=== PATIENT | female | born 1955 | race African-American/Black ===

== ENCOUNTER 2017-03-14 13:08 | Inpatient (IN) | payer OTHER ==
[2017-03-14 14:24] VITALS: BMI 21.6
--- NOTE | 2017-03-14 14:36 | HP ---
Admission [facility] Chief Complaint: I AM HERE FOR REHAB FROM ALCOHOL AND COCAINE Allergies/Adverse Reactions: Allergies Allergy/AdvReac Type Severity Reaction Status Date / Time No Known Allergies Allergy Verified 03/14/17 14:24 History of Present Illness: THIS 61 YEARS OLD FEMALE WITH ALCOHOL AND COCAINE DEPENDENCE ,SEEKING REHAB, LAST TREATMENT IN [facility] 03/01/17 TO 03/14/17 HTN,INSOMNIA WEIGHT LOSS NICOTINE [id number] LONGEST PERIOD OF SOBRIETY 5 YEARS Exam Limitations: No Limitations - Ebola screening Have you traveled outside of the country in the last 21 days: No Have you had contact with anyone from an Ebola affected area: No Have you been sick,other than usual withdrawal symptoms: No Do you have a fever: No - Review of Systems Constitutional: No Symptoms Reported EENT: reports: No Symptoms Reported Respiratory: reports: No Symptoms reported Cardiac: reports: No Symptoms Reported GI: reports: No Symptoms Reported : reports: No Symptoms Reported Musculoskeletal: reports: No Symptoms Reported Integumentary: reports: No Symptoms Reported Neuro: reports: No Symptoms reported Endocrine: reports: No Symptoms Reported Hematology: reports: No Symptoms Reported Psychiatric: reports: No Sypmtoms Reported, Judgement Intact, Mood/Affect Appropiate, Depressed Patient History - Patient Medical History Hx Chronic Obstructive Pulmonary Disease (COPD): No Hx Cancer: No Hx Cardiac Disorders: No Hx Congestive Heart Failure: No Hx Hypertension: Yes (ON MED) Hx Hypercholesterolemia: No Hx Pacemaker: No HX Cerebrovascular Accident: No Hx Seizures: No Hx Dementia: No Hx Diabetes: No Hx Gastrointestinal Disorders: No Hx Liver Disease: No Hx Genitourinary Disorders: No Hx Sexually Transmitted Disorders: No Hx Renal Disease (ESRD): No Hx Thyroid Disease: No Hx Human Immunodeficiency Virus (HIV): No (LAST NEGATIVE 03/11) Hx Hepatitis C: No Hx Depression: Yes Hx Suicide Attempt: Yes (OVERDOSE 02/08) - Patient Surgical History Past Surgical History: Yes Hx Neurologic Surgery: Yes (2003 FOR BLEEEDING ANEURYSM AT [facility]) - PPD History Previous Implant?: Yes Implanted On Prior [facility] Admission?: No PPD to be Administered?: Yes - Smoking Cessation Smoking history: Current every day smoker Have you smoked in the past 12 months: Yes Aproximately how many cigarettes per day: 20 Hx Chewing Tobacco Use: No Initiated information on smoking cessation: Yes 'Breaking Loose' booklet given: 03/14/17 - Substance & Tx. History Hx Alcohol Use: Yes Hx Substance Use: Yes Substance Use Type: Alcohol, Cocaine - Substances Abused Cocaine Route: Smoking Frequency: Daily Amount used: $400 Age of first use: 25 Date of Last Use: 03/01/17 Alcohol Route: Oral Frequency: Daily Amount used: 1-2 6pks beer Age of first use: 14 Date of Last Use: 03/01/17 Family Disease History - Family Disease History Family Disease History: CA: Father (ALCOHOL,,BRAIN TUMOR), Mother ( BLADDER,), Other: Father Admission Physical Exam [facility] - Vital Signs Vital Signs: Vital Signs - 24 hr 03/14/17 14:22 Temperature 96.0 F L Pulse Rate 74 Respiratory 20 Rate Blood Pressure 139/72 - Physical General Appearance: Yes: Within Normal Limits, No Apparent Distress HEENTM: Yes: Normal ENT Inspection, AMANDA, Pharynx Normal Respiratory: Yes: Lungs Clear, Normal Breath Sounds, No Respiratory Distress Neck: Yes: No masses,lesions,Nodules, Supple, Trachea in good position Breast: Yes: Breast Exam Deferred Cardiology: Yes: Within Normal Limits, Regular Rhythm, Regular Rate, S1, S2 Abdominal: Yes: Within Normal Limits, Normal Bowel Sounds, Non Tender, Flat, Soft Genitourinary: Yes: Within Normal Limits Back: Yes: Within Normal Limits Musculoskeletal: Yes: Within Normal Limits, Back pain Extremities: Yes: Within Normal Limits Neurological: Yes: va underwriter II-XII NML intact, Fully Oriented, Alert, Motor Strength 5/5 Lymphatic: Yes: Within Normal Limits - Diagnostic (1) Alcohol dependence Current Visit: Yes Status: Acute (2) Cocaine dependence Current Visit: Yes Status: Acute (3) Weight loss Current Visit: Yes Status: Acute (4) Hypertension Current Visit: Yes Status: Acute (5) Anxiety and depression Current Visit: Yes Status: Acute (6) History of surgery for cerebral aneurysm Current Visit: Yes Status: Acute (7) Insomnia Current Visit: Yes Status: Acute Cleared for Admission [facility] - Detox or Rehab Claeared for Rehab Admission: Yes [facility] Breath Alcohol Content Breath Alcohol Content: 0 Urine Pregancy Test - Result Urine Test Results: Negative- NO Line Present Urine Drug Screen - Results Drug Screen Negative: No Urine Drug Screen Results: [facility]-Cocaine Inpatient Rehab Admission - Initial Determination Are CD services needed?: Yes Free of communicable disease: Yes Not in need of hospitalization: Yes - Rehab Admission Criteria Poor recovery environment: Yes Comorbidities: Yes Patient is meeting Inpatient Rehab admission criteria:: Yes
[2017-03-14] MEDS ORDERED: LOPERAMIDE HCL 2 MG CAPSULE PO PRN (15:04)
[2017-03-14] MEDS ORDERED: MAG HYDROX/AL HYDROX/SIMETH 30 ML UNIT-DOSE CUP PO PRN (15:04)
[2017-03-14] MEDS ORDERED: P-EPHED 60MG/TRIPROLIDI 2.5MG TABLET PO PRN (15:04)
[2017-03-14] MEDS ORDERED: diphenhydrAMINE HCL 50 MG CAPSULE PO PRN (15:04)
[2017-03-14] MEDS ORDERED: hydrOXYzine PAMOATE 50 MG CAPSULE (FP) PO PRN (15:04)
[2017-03-14] MEDS ORDERED: IBUPROFEN 400 MG TABLET (FP) PO PRN (15:04)
[2017-03-14] MEDS ORDERED: ACETAMINOPHEN 325 MG TABLET (FP) PO PRN (15:04)
[2017-03-14] MEDS ORDERED: MENTHOL/PHENOL 1 EACH UD MM PRN (15:04)
[2017-03-14] MEDS ORDERED: NICOTINE POLACRILEX 2 MG GUM BC PRN (15:04)
[2017-03-14] MEDS ORDERED: guaiFENesin/D-METHORPHAN HB 10 ML UNIT-DOSE CUPS PO PRN (15:04)
[2017-03-14 17:15] LABS: MCH 27.2 pg (25.7-33.7); MCHC 33.2 g/dl (32.0-36.0); MEAN CELL VOLUME 81.9 fl (80-96); MEAN PLT VOLUME 10.6 fl (7.5-11.1); PLATELET COUNT 176 K/MM3 (134-434); RDW 13.5 % (11.6-15.6); WHITE BLOOD COUNT 6.4 K/mm3 (4.0-10.0)
[2017-03-14 17:20] LABS: ALBUMIN 3.4 g/dl (3.4-5.0); CALCIUM 8.7 mg/dL (8.5-10.1); GLUCOSE,RANDOM 93 mg/dL (74-106); SGOT/AST 28 U/L (15-37)
[2017-03-14 17:22] LABS: ALK PHOS 112 U/L (45-117); ANION GAP 5 (8-16); BILIRUBIN,TOTAL 0.3 mg/dL (0.2-1.0); CO2 30 mmol/L (21-32); CREATININE 0.8 mg/dL (0.55-1.02); SGPT/ALT 39 U/L (12-78); TOT PROT 6.8 g/dl (6.4-8.2)
[2017-03-14] MEDS ORDERED: TUBERCULIN PPD 5 TU/0.1ML VIAL ID ONE (18:10)
[2017-03-14 18:34] LABS: PLATELET ESTIMATE ADEQUATE (NORMAL)
[2017-03-14 21:23] LABS: URINE APPEARANCE CLOUDY; URINE BILIRUBIN NEGATIVE (NEGATIVE); URINE BLOOD NEGATIVE (NEGATIVE); URINE COLOR YELLOW; URINE GLUCOSE (UA) NEGATIVE (NEGATIVE); URINE KETONE NEGATIVE (NEGATIVE); URINE NITRITE NEGATIVE (NEGATIVE); URINE PROTEIN NEGATIVE (NEGATIVE); URINE UROBILINOGEN NEGATIVE mg/dL (0.2-1.0)
[2017-03-14] MEDS: THIAMINE HCL 100 MG TABLET (FP) PO SCH (21:35)
[2017-03-14] MEDS: PATIENT'S OWN MEDICATION (NON-FORMULARY) (Simvastatin [Simvastatin] 10 MG) PO SCH (21:36)
[2017-03-14] MEDS: NICOTINE 21 MG/24 HOURS TOPICAL PATCH TD SCH (21:36)
[2017-03-14 21:38] LABS: URINE LEUK ESTERASE 1+ (NEGATIVE)
[2017-03-14 21:43] LABS: URINE MUCUS RARE; URINE RBC 4 /hpf (0-3); URINE WBC 2 /hpf (3-5)
[2017-03-14] MEDS: traZODone HCL 100 MG TABLET (FP) PO SCH (23:27)
[2017-03-15] MEDS ORDERED: PT OWN MED DRAWER 7, Y5N ONE ×3 (09:19→21:42)
[2017-03-15] MEDS: PRENATAL VITAMINS W/ FOLIC ACID TABLET (FP) PO SCH (10:08)
[2017-03-15] MEDS: ASPIRIN COATED 81 MG TABLET.EC PO SCH (10:09)
[2017-03-15] MEDS: amLODIPine BESYLATE 5 MG TABLET (FP) PO SCH (10:09)
[2017-03-15] MEDS: ENALAPRIL MALEATE 2.5 MG TABLET (FP) PO SCH (10:09)
[2017-03-15] MEDS: NICOTINE 21 MG/24 HOURS TOPICAL PATCH TD SCH (10:11)
[2017-03-15 11:29] LABS: HIV 1 & 2 AB NEGATIVE; HIV 1 AGp24 NEGATIVE
[2017-03-15] MEDS ORDERED: PNEUMOC 13-VAL CONJ-DIP CRM/PF 0.5 ML DISP.SYRIN IM ONE (12:00)
[2017-03-15] MEDS ORDERED: FLU VACCINE QUAD 60 MCG/0.5 ML (MDV 17-18) IM ONE (12:00)
[2017-03-15] MEDS ORDERED: PNEUMOCOCCAL 23 VACCINE 0.5 ML VIAL IM ONE (12:00)
--- NOTE | 2017-03-15 16:01 | EKG ---
Test Reason : Blood Pressure : / mmHG Vent. Rate : 069 BPM Atrial Rate : 069 BPM P-R Int : 136 ms QRS Dur : 088 ms QT Int : 432 ms P-R-T Axes : 049 006 -29 degrees QTc Int : 462 ms NORMAL SINUS RHYTHM POSSIBLE ANTERIOR INFARCT , AGE UNDETERMINED ABNORMAL ECG NO PREVIOUS ECGS AVAILABLE Confirmed by JONNATHAN RODRIGUEZ MD ([id number]) on 03/15/2017 4:00:36 PM Referred By: Stephenie Mahoney Confirmed By:JONNATHAN RODRIGUEZ MD
[2017-03-15] MEDS: THIAMINE HCL 100 MG TABLET (FP) PO SCH (21:39)
[2017-03-15] MEDS: traZODone HCL 100 MG TABLET (FP) PO SCH (21:39)
[2017-03-15] MEDS: VALPROIC ACID 250 MG/5 ML PO SCH (21:40)
[2017-03-15] MEDS: PATIENT'S OWN MEDICATION (NON-FORMULARY) (Simvastatin [Simvastatin] 10 MG) PO SCH (21:42)
[2017-03-16] MEDS ORDERED: PT OWN MED DRAWER 7, Y5N ONE (08:43)
[2017-03-16] MEDS: PRENATAL VITAMINS W/ FOLIC ACID TABLET (FP) PO SCH (10:09)
[2017-03-16] MEDS: ASPIRIN COATED 81 MG TABLET.EC PO SCH (10:09)
[2017-03-16] MEDS: ENALAPRIL MALEATE 2.5 MG TABLET (FP) PO SCH (10:10)
[2017-03-16] MEDS: NICOTINE 21 MG/24 HOURS TOPICAL PATCH TD SCH (10:10)
[2017-03-16] MEDS: amLODIPine BESYLATE 5 MG TABLET (FP) PO SCH (10:10)
--- NOTE | 2017-03-16 13:15 | PN ---
Psychiatric Progress Note Vital Signs: Vital Signs Period Temp Pulse Resp BP Sys/Shannon Pulse Ox Last 24 Hr 98.9 F-99.6 F 75-77 18-18 138-145/63-83 Date of Session: 03/16/17 Chief Complaint:: "Sleep is still big problem,Trazodone is not helping at all". HPI: Patient addressed Alcohol and Cocaine dependence comorbid with Substance induced mood disorder. ROS: Significant for HTN,H/O Brain aneurism. Current Medications: Active Medications Generic Name Dose Route Start Last Admin Trade Name Freq PRN Reason Stop Dose Admin Acetaminophen 650 mg 03/14/17 15:04 Tylenol - PO Q4H PRN PAIN Al Hydroxide/Mg Hydroxide 30 ml 03/14/17 15:04 03/14/17 17:29 Mylanta Oral Suspension - PO 30 ml Q6H PRN Administration DYSPEPSIA Amlodipine Besylate 5 mg 03/15/17 10:00 03/16/17 10:10 Norvasc - PO 5 mg DAILY DOTTY Administration Aspirin 81 mg 03/15/17 10:00 03/16/17 10:09 Ecotrin - PO 81 mg DAILY DOTTY Administration Diphenhydramine HCl 50 mg 03/14/17 15:04 Benadryl - PO HSMR1 PRN INSOMNIA Enalapril Maleate 2.5 mg 03/15/17 10:00 03/16/17 10:10 Vasotec - PO 2.5 mg DAILY DOTTY Administration Ergocalciferol 50,000 unit 03/21/17 10:00 Drisdol - PO Th@1000 DOTTY Eucalyptus/Menthol/Phenol/Sorbitol 1 each 03/14/17 15:04 Cepastat Lozenge - MM Q4H PRN SORE THROAT Guaifenesin 10 ml 03/14/17 15:04 Robitussin Dm - PO Q6H PRN COUGH Hydroxyzine Pamoate 50 mg 03/14/17 15:04 Vistaril - PO Q4H PRN AGITATION Ibuprofen 400 mg 03/14/17 15:04 Motrin - PO Q6H PRN SEVERE PAIN Loperamide HCl 4 mg 03/14/17 15:04 Imodium - PO Q6H PRN DIARRHEA Magnesium Citrate 300 ml 03/14/17 15:04 Citroma - PO Q48H PRN CONSTIPATION Magnesium Hydroxide 30 ml 03/14/17 15:04 Milk Of Magnesia - PO DAILY PRN CONSTIPATION Nicotine 21 mg 03/14/17 17:15 03/16/17 10:10 Nicoderm Patch - TD Not Given DAILY DOTTY Nicotine Polacrilex 2 mg 03/14/17 15:04 Nicorette Gum - BC Q2H PRN NICOTINE REPLACEMENT RX Non-Formulary Medication 10 mg 03/14/17 22:00 03/15/17 21:42 Simvastatin [Simvastatin] PO 10 mg HS DOTTY Administration Multivit/Folic Acid/Iron 1 tab 03/15/17 10:00 03/16/17 10:09 Vitamins (Sjr) - PO 1 tab DAILY DOTTY Administration Pseudoephedrine/Triprolidine 1 combo 03/14/17 15:04 Actifed - PO TID PRN NASAL CONGESTION Quetiapine Fumarate 200 mg 03/16/17 22:00 Seroquel - PO HS DOTTY Thiamine HCl 100 mg 03/14/17 22:00 03/15/17 21:39 Vitamin B1 - PO 100 mg HS DOTTY Administration Trazodone HCl 200 mg 03/14/17 22:15 03/15/17 21:39 Desyrel - PO 200 mg HS DOTTY Administration Valproate Sodium 500 mg 03/15/17 22:00 03/15/17 21:40 Depakene - PO 500 mg HS DOTTY Administration Current Side Effect: No Lab tests ordered: No Lab tests reviewed: Yes Provider note:: Chart was revuewed,patient was evaluated and treatment plan has been discussed with [facility].according to the patient Trazodone is not really helping to her.She reports that Seroquel used to help her in the past for mood stability and insomnia.D/C Trazodone 200 mg po hs.Start seroquel 200 mg po hs. Psychoeducation,supportive therapy provided. Supportive therapy provided as well as psychoeducation. Total face to face time:: 30 Mental Status Exam - Mental Status Exam Alert and Oriented to: Time, Place, Person Cognitive Function: Grossly Intact Patient Appearance: Well Groomed Mood: Anxious Affect: Mood Congruent, Labile Patient Behavior: Cooperative Speech Pattern: Clear Voice Loudness: Normal Thought Process: Goal Oriented Thought Disorder: Not Present Hallucinations: Denies Suicidal Ideation: Denies Homicidal Ideation: Denies Insight/Judgement: Fair Sleep: Difficulty falling asleep Appetite: Fair Muscle strength/Tone: Normal Gait/Station: Normal Psychiatric Treatment Plan - Problem List (1) Alcohol dependence Current Visit: Yes (2) Cocaine dependence Current Visit: Yes (3) History of surgery for cerebral aneurysm Current Visit: Yes (4) Hypertension Current Visit: Yes (5) Substance induced mood disorder Current Visit: Yes
--- NOTE | 2017-03-16 13:22 | HP ---
Psychiatrist Admission - Data Date of interview: 03/16/17 Admission source: [facility] Identifying data: This is the first admission to [address] [place] [address] for this 61 years old AA single female,resides alone,unemployed. Medical History: HTN,Hyperlipidemia,H/O surgery for cerebral aneurism. Psychiatric History: Long history of mental illness.Patient was dx with Major depressive disorder,then with Schizoaffective disorder and Bordeline Personality Disorder.Reports a few psychiatric hospitalizations,most recent was a few weeks ago to [facility].She also reports a few siuicidal attempts,most recent was about 3 weeks ago(DOD).Current psychotropic medications:Seroquel 200 mg po hs (obtaining from her PCP). Physical/Sexual Abuse/Trauma History: Patient is not willing to discuss this at present. Vital Signs: Vital Signs - 24 hr 03/16/17 03/16/17 03/16/17 00:30 03:30 07:28 Temperature 99.6 F Pulse Rate 77 Respiratory 18 18 18 Rate Blood Pressure 145/83 03/16/17 10:00 Temperature 98.9 F Pulse Rate 75 Respiratory 18 Rate Blood Pressure 138/63 Allergies/Adverse Reactions: Allergies Allergy/AdvReac Type Severity Reaction Status Date / Time No Known Allergies Allergy Verified 03/14/17 14:24 Date of last physical exam: 03/14/17 Concur with the findings of this exam: Yes - Substance Abuse/Tx History Hx Alcohol Use: Yes (reports drinking since 14 yo,1-2 of 6 pkc of beer daily) Hx Substance Use: Yes (crack/cocaine since ,spending $200-400 while binging) Substance Use Type: Alcohol, Cocaine Hx Substance Use Treatment: Yes (longest abstinence almost 5 years) Mental Status Exam - Mental Status Exam Alert and Oriented to: Time, Place, Person Cognitive Function: Grossly Intact Patient Appearance: Well Groomed Mood: Anxious Affect: Mood Congruent, Labile Patient Behavior: Cooperative Speech Pattern: Clear Voice Loudness: Normal Thought Process: Goal Oriented Thought Disorder: Not Present Hallucinations: Denies Suicidal Ideation: Denies Homicidal Ideation: Denies Insight/Judgement: Fair Sleep: Difficulty falling asleep Appetite: Good Muscle strength/Tone: Normal Gait/Station: Normal Psychiatric Findings - Problem List ([place] 1, 2,3) (1) Alcohol dependence Current Visit: Yes Status: Chronic (2) Cocaine dependence Current Visit: Yes Status: Chronic (3) History of surgery for cerebral aneurysm Current Visit: Yes Status: Resolved (4) Hypertension Current Visit: Yes Status: Chronic (5) Schizoaffective disorder Current Visit: Yes Status: Chronic - Initial Treatment Plan Initial Treatment Plan: Seroquel 200 mg po hs.Will monitor progress.
[2017-03-16] MEDS ORDERED: DOCUSATE SODIUM 100 MG CAPSULE (FP) PO ONE (14:50)
[2017-03-16] MEDS: MAGNESIUM HYDROX 2400MG/30ML ORAL SUSPENSION 30 ML CUP PO PRN (17:30)
[2017-03-16] MEDS: QUEtiapine FUMARATE 200 MG TABLET PO SCH (21:40)
[2017-03-16] MEDS: traZODone HCL 100 MG TABLET (FP) PO SCH (21:40)
[2017-03-16] MEDS: PATIENT'S OWN MEDICATION (NON-FORMULARY) (Simvastatin [Simvastatin] 10 MG) PO SCH (21:40)
[2017-03-16] MEDS: VALPROIC ACID 250 MG/5 ML PO SCH (21:40)
[2017-03-16] MEDS: THIAMINE HCL 100 MG TABLET (FP) PO SCH (21:40)
[2017-03-16] MEDS: DOCUSATE SODIUM 100 MG CAPSULE (FP) PO SCH (22:02)
[2017-03-17] MEDS: NICOTINE 21 MG/24 HOURS TOPICAL PATCH TD SCH (09:52)
[2017-03-17] MEDS: ASPIRIN COATED 81 MG TABLET.EC PO SCH (09:54)
[2017-03-17] MEDS: MAGNESIUM HYDROX 2400MG/30ML ORAL SUSPENSION 30 ML CUP PO PRN (09:54)
[2017-03-17] MEDS: ENALAPRIL MALEATE 2.5 MG TABLET (FP) PO SCH (09:54)
[2017-03-17] MEDS: amLODIPine BESYLATE 5 MG TABLET (FP) PO SCH (09:54)
[2017-03-17] MEDS: PRENATAL VITAMINS W/ FOLIC ACID TABLET (FP) PO SCH (09:55)
[2017-03-17] MEDS: MAGNESIUM CITRATE 300 ML BOTTLE PO PRN (14:07)
[2017-03-17] MEDS: traZODone HCL 100 MG TABLET (FP) PO SCH (21:37)
[2017-03-17] MEDS: VALPROIC ACID 250 MG/5 ML PO SCH (21:37)
[2017-03-17] MEDS: PATIENT'S OWN MEDICATION (NON-FORMULARY) (Simvastatin [Simvastatin] 10 MG) PO SCH (21:39)
[2017-03-17] MEDS: DOCUSATE SODIUM 100 MG CAPSULE (FP) PO SCH (21:40)
[2017-03-17] MEDS: THIAMINE HCL 100 MG TABLET (FP) PO SCH (21:40)
[2017-03-17] MEDS: QUEtiapine FUMARATE 200 MG TABLET PO SCH (21:40)
[2017-03-18] MEDS: ASPIRIN COATED 81 MG TABLET.EC PO SCH (09:06)
[2017-03-18] MEDS: PRENATAL VITAMINS W/ FOLIC ACID TABLET (FP) PO SCH (09:07)
[2017-03-18] MEDS: NICOTINE 21 MG/24 HOURS TOPICAL PATCH TD SCH (09:07)
[2017-03-18] MEDS: amLODIPine BESYLATE 5 MG TABLET (FP) PO SCH (09:07)
[2017-03-18] MEDS: ENALAPRIL MALEATE 2.5 MG TABLET (FP) PO SCH (09:07)
[2017-03-18] MEDS: THIAMINE HCL 100 MG TABLET (FP) PO SCH (21:58)
[2017-03-18] MEDS: DOCUSATE SODIUM 100 MG CAPSULE (FP) PO SCH (21:58)
[2017-03-18] MEDS: traZODone HCL 100 MG TABLET (FP) PO SCH (21:58)
[2017-03-18] MEDS: PATIENT'S OWN MEDICATION (NON-FORMULARY) (Simvastatin [Simvastatin] 10 MG) PO SCH (21:58)
[2017-03-18] MEDS: QUEtiapine FUMARATE 200 MG TABLET PO SCH (21:59)
[2017-03-18] MEDS: VALPROIC ACID 250 MG/5 ML PO SCH (21:59)
[2017-03-19] MEDS: ASPIRIN COATED 81 MG TABLET.EC PO SCH (10:05)
[2017-03-19] MEDS: amLODIPine BESYLATE 5 MG TABLET (FP) PO SCH (10:05)
[2017-03-19] MEDS: NICOTINE 21 MG/24 HOURS TOPICAL PATCH TD SCH (10:06)
[2017-03-19] MEDS: PRENATAL VITAMINS W/ FOLIC ACID TABLET (FP) PO SCH (10:06)
[2017-03-19] MEDS: ENALAPRIL MALEATE 2.5 MG TABLET (FP) PO SCH (10:06)
[2017-03-19] MEDS: DOCUSATE SODIUM 100 MG CAPSULE (FP) PO SCH (21:57)
[2017-03-19] MEDS: traZODone HCL 100 MG TABLET (FP) PO SCH (21:57)
[2017-03-19] MEDS: QUEtiapine FUMARATE 200 MG TABLET PO SCH (21:57)
[2017-03-19] MEDS: THIAMINE HCL 100 MG TABLET (FP) PO SCH (21:59)
[2017-03-19] MEDS: PATIENT'S OWN MEDICATION (NON-FORMULARY) (Simvastatin [Simvastatin] 10 MG) PO SCH (22:22)
[2017-03-19] MEDS: VALPROIC ACID 250 MG/5 ML PO SCH (22:22)
[2017-03-20] MEDS ORDERED: PT OWN MED DRAWER 7, Y5N ONE (08:51)
[2017-03-20] MEDS: PRENATAL VITAMINS W/ FOLIC ACID TABLET (FP) PO SCH (10:11)
[2017-03-20] MEDS: ASPIRIN COATED 81 MG TABLET.EC PO SCH (10:11)
[2017-03-20] MEDS: amLODIPine BESYLATE 5 MG TABLET (FP) PO SCH (10:11)
[2017-03-20] MEDS: ENALAPRIL MALEATE 2.5 MG TABLET (FP) PO SCH (10:11)
[2017-03-20] MEDS: NICOTINE 21 MG/24 HOURS TOPICAL PATCH TD SCH (10:12)
[2017-03-20] MEDS: MAGNESIUM HYDROX 2400MG/30ML ORAL SUSPENSION 30 ML CUP PO PRN (14:38)
[2017-03-20] MEDS: DOCUSATE SODIUM 100 MG CAPSULE (FP) PO SCH (21:53)
[2017-03-20] MEDS: traZODone HCL 100 MG TABLET (FP) PO SCH (21:54)
[2017-03-20] MEDS: THIAMINE HCL 100 MG TABLET (FP) PO SCH (21:54)
[2017-03-20] MEDS: QUEtiapine FUMARATE 200 MG TABLET PO SCH (21:55)
[2017-03-20] MEDS: VALPROIC ACID 250 MG/5 ML PO SCH (21:56)
[2017-03-20] MEDS: PATIENT'S OWN MEDICATION (NON-FORMULARY) (Simvastatin [Simvastatin] 10 MG) PO SCH (21:56)
[2017-03-20] MEDS: MAGNESIUM CITRATE 300 ML BOTTLE PO PRN (21:58)
[2017-03-21] MEDS ORDERED: PT OWN MED DRAWER 7, Y5N ONE (09:07)
[2017-03-21] MEDS: PRENATAL VITAMINS W/ FOLIC ACID TABLET (FP) PO SCH (10:26)
[2017-03-21] MEDS: ASPIRIN COATED 81 MG TABLET.EC PO SCH (10:27)
[2017-03-21] MEDS: ENALAPRIL MALEATE 2.5 MG TABLET (FP) PO SCH (10:27)
[2017-03-21] MEDS: amLODIPine BESYLATE 5 MG TABLET (FP) PO SCH (10:27)
[2017-03-21] MEDS: ERGOCALCIFEROL (VITAMIN D2) 50,000 UNIT CAPSULE (FP) PO SCH (10:28)
[2017-03-21] MEDS: NICOTINE 21 MG/24 HOURS TOPICAL PATCH TD SCH (10:28)
[2017-03-21] MEDS: PATIENT'S OWN MEDICATION (NON-FORMULARY) (Simvastatin [Simvastatin] 10 MG) PO SCH (21:48)
[2017-03-21] MEDS: traZODone HCL 100 MG TABLET (FP) PO SCH (21:48)
[2017-03-21] MEDS: DOCUSATE SODIUM 100 MG CAPSULE (FP) PO SCH (21:48)
[2017-03-21] MEDS: THIAMINE HCL 100 MG TABLET (FP) PO SCH (21:48)
[2017-03-21] MEDS: QUEtiapine FUMARATE 200 MG TABLET PO SCH (21:48)
[2017-03-21] MEDS: VALPROIC ACID 250 MG/5 ML PO SCH (21:49)
[2017-03-22] MEDS ORDERED: PT OWN MED DRAWER 7, Y5N ONE (09:23)
[2017-03-22] MEDS: PRENATAL VITAMINS W/ FOLIC ACID TABLET (FP) PO SCH (10:23)
[2017-03-22] MEDS: NICOTINE 21 MG/24 HOURS TOPICAL PATCH TD SCH (10:23)
[2017-03-22] MEDS: ENALAPRIL MALEATE 2.5 MG TABLET (FP) PO SCH (10:24)
[2017-03-22] MEDS: ASPIRIN COATED 81 MG TABLET.EC PO SCH (10:24)
[2017-03-22] MEDS: amLODIPine BESYLATE 5 MG TABLET (FP) PO SCH (10:25)
[2017-03-22] MEDS: ERGOCALCIFEROL (VITAMIN D2) 50,000 UNIT CAPSULE (FP) PO SCH (10:25)
[2017-03-22] MEDS: VALPROIC ACID 250 MG/5 ML PO SCH (21:37)
[2017-03-22] MEDS: PATIENT'S OWN MEDICATION (NON-FORMULARY) (Simvastatin [Simvastatin] 10 MG) PO SCH (21:38)
[2017-03-22] MEDS: THIAMINE HCL 100 MG TABLET (FP) PO SCH (21:38)
[2017-03-22] MEDS: traZODone HCL 100 MG TABLET (FP) PO SCH (21:38)
[2017-03-22] MEDS: DOCUSATE SODIUM 100 MG CAPSULE (FP) PO SCH (21:38)
[2017-03-22] MEDS: QUEtiapine FUMARATE 200 MG TABLET PO SCH (21:39)
[2017-03-23] MEDS ORDERED: PT OWN MED DRAWER 7, Y5N ONE ×2 (08:40→19:34)
[2017-03-23] MEDS: ASPIRIN COATED 81 MG TABLET.EC PO SCH (10:32)
[2017-03-23] MEDS: amLODIPine BESYLATE 5 MG TABLET (FP) PO SCH (10:32)
[2017-03-23] MEDS: NICOTINE 21 MG/24 HOURS TOPICAL PATCH TD SCH (10:32)
[2017-03-23] MEDS: ENALAPRIL MALEATE 2.5 MG TABLET (FP) PO SCH (10:32)
[2017-03-23] MEDS: PRENATAL VITAMINS W/ FOLIC ACID TABLET (FP) PO SCH (10:33)
[2017-03-23] MEDS: VALPROIC ACID 250 MG/5 ML PO SCH (21:22)
[2017-03-23] MEDS: DOCUSATE SODIUM 100 MG CAPSULE (FP) PO SCH (21:22)
[2017-03-23] MEDS: QUEtiapine FUMARATE 200 MG TABLET PO SCH (21:23)
[2017-03-23] MEDS: traZODone HCL 100 MG TABLET (FP) PO SCH (21:23)
[2017-03-23] MEDS: THIAMINE HCL 100 MG TABLET (FP) PO SCH (21:23)
[2017-03-23] MEDS: PATIENT'S OWN MEDICATION (NON-FORMULARY) (Simvastatin [Simvastatin] 10 MG) PO SCH (21:24)
[2017-03-24] MEDS ORDERED: PT OWN MED DRAWER 7, Y5N ONE (08:49)
[2017-03-24] MEDS: amLODIPine BESYLATE 5 MG TABLET (FP) PO SCH (10:09)
[2017-03-24] MEDS: ASPIRIN COATED 81 MG TABLET.EC PO SCH (10:09)
[2017-03-24] MEDS: NICOTINE 21 MG/24 HOURS TOPICAL PATCH TD SCH (10:09)
[2017-03-24] MEDS: ENALAPRIL MALEATE 2.5 MG TABLET (FP) PO SCH (10:09)
[2017-03-24] MEDS: PRENATAL VITAMINS W/ FOLIC ACID TABLET (FP) PO SCH (10:09)
[2017-03-24] MEDS: PATIENT'S OWN MEDICATION (NON-FORMULARY) (Simvastatin [Simvastatin] 10 MG) PO SCH (21:26)
[2017-03-24] MEDS: QUEtiapine FUMARATE 200 MG TABLET PO SCH (21:27)
[2017-03-24] MEDS: traZODone HCL 100 MG TABLET (FP) PO SCH (21:27)
[2017-03-24] MEDS: DOCUSATE SODIUM 100 MG CAPSULE (FP) PO SCH (21:27)
[2017-03-24] MEDS: THIAMINE HCL 100 MG TABLET (FP) PO SCH (21:27)
[2017-03-24] MEDS: VALPROIC ACID 250 MG/5 ML PO SCH (21:27)
[2017-03-25] MEDS ORDERED: PT OWN MED DRAWER 7, Y5N ONE ×3 (08:43→19:43)
[2017-03-25] MEDS: ASPIRIN COATED 81 MG TABLET.EC PO SCH (09:34)
[2017-03-25] MEDS: NICOTINE 21 MG/24 HOURS TOPICAL PATCH TD SCH (09:35)
[2017-03-25] MEDS: ENALAPRIL MALEATE 2.5 MG TABLET (FP) PO SCH (09:35)
[2017-03-25] MEDS: amLODIPine BESYLATE 5 MG TABLET (FP) PO SCH (09:35)
[2017-03-25] MEDS: PRENATAL VITAMINS W/ FOLIC ACID TABLET (FP) PO SCH (09:35)
[2017-03-25] MEDS: traZODone HCL 100 MG TABLET (FP) PO SCH (21:27)
[2017-03-25] MEDS: VALPROIC ACID 250 MG/5 ML PO SCH (21:27)
[2017-03-25] MEDS: DOCUSATE SODIUM 100 MG CAPSULE (FP) PO SCH (21:27)
[2017-03-25] MEDS: THIAMINE HCL 100 MG TABLET (FP) PO SCH (21:27)
[2017-03-25] MEDS: QUEtiapine FUMARATE 200 MG TABLET PO SCH (21:27)
[2017-03-25] MEDS: PATIENT'S OWN MEDICATION (NON-FORMULARY) (Simvastatin [Simvastatin] 10 MG) PO SCH (21:29)
[2017-03-26] MEDS ORDERED: PT OWN MED DRAWER 7, Y5N ONE ×3 (08:36→22:28)
[2017-03-26] MEDS: ASPIRIN COATED 81 MG TABLET.EC PO SCH (10:28)
[2017-03-26] MEDS: PRENATAL VITAMINS W/ FOLIC ACID TABLET (FP) PO SCH (10:28)
[2017-03-26] MEDS: ENALAPRIL MALEATE 2.5 MG TABLET (FP) PO SCH (10:28)
[2017-03-26] MEDS: amLODIPine BESYLATE 5 MG TABLET (FP) PO SCH (10:28)
[2017-03-26] MEDS: NICOTINE 21 MG/24 HOURS TOPICAL PATCH TD SCH (10:45)
[2017-03-26] MEDS ORDERED: LORATADINE 10 MG TABLET PO SCH (13:30)
[2017-03-26] MEDS ORDERED: FLUTICASONE PROP 0.05% 16 GM NASAL SPRAY NS SCH (13:30)
[2017-03-26] MEDS: CARBAMIDE PEROXIDE 6.5% OTIC 15 ML BOTTLE AU SCH ×2 (16:05→22:26)
[2017-03-26] MEDS: DOCUSATE SODIUM 100 MG CAPSULE (FP) PO SCH (21:42)
[2017-03-26] MEDS: QUEtiapine FUMARATE 200 MG TABLET PO SCH (21:42)
[2017-03-26] MEDS: traZODone HCL 100 MG TABLET (FP) PO SCH (21:42)
[2017-03-26] MEDS: THIAMINE HCL 100 MG TABLET (FP) PO SCH (21:42)
[2017-03-26] MEDS: VALPROIC ACID 250 MG/5 ML PO SCH (21:43)
[2017-03-26] MEDS: PATIENT'S OWN MEDICATION (NON-FORMULARY) (Simvastatin [Simvastatin] 10 MG) PO SCH (22:28)
[2017-03-27] MEDS ORDERED: PT OWN MED DRAWER 7, Y5N ONE (08:42)
[2017-03-27] MEDS: CARBAMIDE PEROXIDE 6.5% OTIC 15 ML BOTTLE AU SCH ×2 (09:41→21:29)
[2017-03-27] MEDS: ASPIRIN COATED 81 MG TABLET.EC PO SCH (09:41)
[2017-03-27] MEDS: amLODIPine BESYLATE 5 MG TABLET (FP) PO SCH (09:41)
[2017-03-27] MEDS: ENALAPRIL MALEATE 2.5 MG TABLET (FP) PO SCH (09:42)
[2017-03-27] MEDS: PRENATAL VITAMINS W/ FOLIC ACID TABLET (FP) PO SCH (09:42)
[2017-03-27] MEDS: NICOTINE 21 MG/24 HOURS TOPICAL PATCH TD SCH (09:43)
[2017-03-27] MEDS: DOCUSATE SODIUM 100 MG CAPSULE (FP) PO SCH (21:28)
[2017-03-27] MEDS: PATIENT'S OWN MEDICATION (NON-FORMULARY) (Simvastatin [Simvastatin] 10 MG) PO SCH (21:29)
[2017-03-27] MEDS: traZODone HCL 100 MG TABLET (FP) PO SCH (21:29)
[2017-03-27] MEDS: QUEtiapine FUMARATE 200 MG TABLET PO SCH (21:29)
[2017-03-27] MEDS: THIAMINE HCL 100 MG TABLET (FP) PO SCH (21:29)
[2017-03-27] MEDS: VALPROIC ACID 250 MG/5 ML PO SCH (21:30)
[2017-03-28 07:37] VITALS: TEMP 98.3
[2017-03-28] MEDS ORDERED: PT OWN MED DRAWER 7, Y5N ONE (09:05)
[2017-03-28 09:41] VITALS: BP 146/73; PULSE 87
[2017-03-28] MEDS: NICOTINE 21 MG/24 HOURS TOPICAL PATCH TD SCH (10:30)
[2017-03-28] MEDS: amLODIPine BESYLATE 5 MG TABLET (FP) PO SCH (10:30)
[2017-03-28] MEDS: ENALAPRIL MALEATE 2.5 MG TABLET (FP) PO SCH (10:30)
[2017-03-28] MEDS: CARBAMIDE PEROXIDE 6.5% OTIC 15 ML BOTTLE AU SCH (10:30)
[2017-03-28] MEDS: PRENATAL VITAMINS W/ FOLIC ACID TABLET (FP) PO SCH (10:30)
[2017-03-28] MEDS: ASPIRIN COATED 81 MG TABLET.EC PO SCH (10:30)
--- NOTE | 2017-04-02 09:32 | PN ---
[facility] Progress Note Note: Patient decided to sign out AMA on 03/28/17.See staff notes for details.
== END 2017-03-28 18:26 | disposition left against medical advice (07) | DRG 770 ==
LOC: YASAS 13:08 → Y3E 16:37
PROVIDERS: ADMIT Psychiatry & Neurology Psychiatry; ATTEND Psychiatry & Neurology Psychiatry
PROC: HZ42ZZZ Group Counseling for Substance Abuse Treatment, Cognitive-Behavioral (ICD-10-PCS; principal; 2017-03-14)
DX: F10.20 Alcohol dependence, uncomplicated (principal); F14.20 Cocaine dependence, uncomplicated; F17.210 Nicotine dependence, cigarettes, uncomplicated; F25.9 Schizoaffective disorder, unspecified; I10 Essential (primary) hypertension; F41.8 Other specified anxiety disorders; G47.00 Insomnia, unspecified; Z79.82 Long term (current) use of aspirin; Z86.79 Personal history of other diseases of the circulatory system; Z87.898 Personal history of other specified conditions; Z91.5 Personal history of self-harm
CPT/HCPCS: 36415; 80053; 81003; 81015; 85027; 86593; 87389; 90688; 90732; 93005; 93010; G0008; G0009